=== PATIENT | female | born 1950 | race Hispanic/Latino ===

== ENCOUNTER 2019-05-24 11:06 | Day surgery (SDC) | payer OTHER ==
[2019-05-24 11:40] VITALS: BP 139/55
[2019-05-24] MEDS ORDERED: LIDOCAINE HCL 1% MDV 50ML VIAL ONE (12:03)
[2019-05-24] MEDS ORDERED: HEPARIN SODIUM 1000UNIT/ML 10ML VIAL ONE (12:03)
[2019-05-24] MEDS ORDERED: IODIXANOL 320 MG/ML 100 ML VIAL ONE (13:11)
[2019-05-24 14:05] VITALS: BP 104/69
--- NOTE | 2019-05-24 14:05 | NUR ---
POST RECEIVED PATIENT BACK FROM [employer] [facility] [employer]. LEFT UPPER ARM WITH SMALL DRESSING IN PLACE. S/P LEFT AV FISTUAL DECLOTTING PER REPORT FISTULA FUNCTIONING. WAS NORMAL VS STABLE ON ARRIVAL, PT SHIV AND ALERT. NO BLEEDING OR HEMATOMA TO SITE LEFT UPPER ARM
[2019-05-24 14:20] VITALS: BP 120/66
--- NOTE | 2019-05-24 14:30 | NUR ---
REPORT REPORT GIVEN TO JESSICA CARDOZA AT [facility], - EMS CALLED TO HAVE PATIENT TRANSPORTED BACK TO [facility].
[2019-05-24 14:35] VITALS: BP 128/66
[2019-05-24 14:50] VITALS: BP 132/67
--- NOTE | 2019-05-24 15:16 | NUR ---
DC PT TRANSFERRED BACK TO [facility] VIA EMS. PT AWAKE AND ALERT. LEFT ARM WITH DRESSING DRY AND INTACT, NO BLEEDING OR HEMATOMA TO SITE. PIV TO RIGHT ARM , PT CAME FROM [facility] WITH PIV TO SITE , SITE ASYMPTOMATIC, FLUSHED WITHOUT COMPLICATIONS
== END 2019-05-24 15:16 ==
LOC: CLH 11:06
PROVIDERS: ATTEND Internal Medicine Nephrology
DX: T82.590A Other mechanical complication of surgically created arteriovenous fistula, initial encounter (principal); I25.10 Atherosclerotic heart disease of native coronary artery without angina pectoris; E11.22 Type 2 diabetes mellitus with diabetic chronic kidney disease; I12.0 Hypertensive chronic kidney disease with stage 5 chronic kidney disease or end stage renal disease; N18.6 End stage renal disease; E11.51 Type 2 diabetes mellitus with diabetic peripheral angiopathy without gangrene; L97.529 Non-pressure chronic ulcer of other part of left foot with unspecified severity; E78.5 Hyperlipidemia, unspecified; M86.9 Osteomyelitis, unspecified; Z99.2 Dependence on renal dialysis; Z88.0 Allergy status to penicillin; Z79.82 Long term (current) use of aspirin; Z79.899 Other long term (current) drug therapy; Z98.890 Other specified postprocedural states; Z80.3 Family history of malignant neoplasm of breast; Y83.8 Other surgical procedures as the cause of abnormal reaction of the patient, or of later complication, without mention of misadventure at the time of the procedure
CPT/HCPCS: 36901; 76937; 82948 ×2; A4606; C1769 ×2; C1894 ×3; J1644; J3490; Q9967